=== PATIENT | female | born 1990 | race Caucasian/White ===

== ENCOUNTER → 2017-03-13 | Outpatient (CLI) | payer BC ==
[~2017-03-13] MED LIST: HYDR200T5 PO; LEVO100T7 PO
--- NOTE | 2017-03-13 14:33 | DIAGNOSTIC IMAGING REPORT ---
Venous Doppler left leg LEFT VENOUS DOPP LOWER EXT UNILAT CLINICAL HISTORY: SWELLING OF Calf, pain OF LEFT CALF STAT pain. Edema. TECHNIQUE: Venous Doppler COMPARISON STUDY: None FINDINGS: Normal study IMPRESSION: Normal study Electronically signed by: Thiago Bustos M.D. 03/13/2017 2:31 PM Dictated Date/Time: 03/13/2017 2:31 PM
== END | disposition home or self-care (01) ==
LOC: C.ULTR 13:17
PROVIDERS: ATTEND Physician Assistant
DX: M79.662 Pain in left lower leg (principal); M79.89 Other specified soft tissue disorders